=== PATIENT | female | born 1945 | race Caucasian/White ===

== ENCOUNTER 2018-05-21 12:27 | Inpatient (IN) ==
[2018-05-21 12:44] LABS: ABG HCO3 12.5 MMOL/L (20-26); ABG Oxygen Saturation 99.6 % (95-100); ABG PCO2 35.4 MM HG (35-48); ABG TCO2 11.4 MMOL/L (23-27)
[2018-05-21 12:45] LABS: ABG PH 7.149 (7.35-7.45)
[2018-05-21] MEDS ORDERED: PIPERACILLIN/TAZOBACTAM 3,375 MG in SODIUM CHLORIDE 0.9% 100 ML IV STA (12:57)
[2018-05-21 13:05] LABS: Basophils # 0.1 10*3/uL (0.0-0.2); Basophils % 0.3 % (0.0-0.8); Eosinophils % 0.2 % (0.00-10.9); Hematocrit 34.9 VOL% (35.7-47.0); Hemoglobin 10.9 GM/DL (12.0-16.0); Immature Granulocytes % 1.1 %; Immature Granulocytes Absolute 0.19 #; Lymphocytes # 7.5 10*3/uL (1.4-4.0); Lymphocytes % 41.6 % (21.3-54.2); Mean Corpuscular HGB Conc 31.2 GM/DL (32-36); Mean Corpuscular Hemoglobin 32 PG (27-34); Mean Corpuscular Volume 100.9 FL (87-102); Mean Platelet Volume 10.2 FL (9.6-12.0); Monocytes # 0.7 10*3/uL (0.11-0.8); Monocytes % 3.7 % (1.7-12.7); NRBC # 0.13 10*3/uL; Neutrophils # 9.6 10*3/uL (1.4-7.4); Neutrophils % 53.1 % (38.7-73.9); Platelet Count 131 T/CUMM (130-400); Red Blood Count 3.46 MC/CUMM (3.8-5.5); Red Cell Distribution Width 14.1 % (9.3-17.3)
[2018-05-21] MEDS ORDERED: SODIUM CHLORIDE 0.9% 1,000 ML IV STA (13:16)
[2018-05-21 13:33] LABS: Albumin 2.2 G/DL (3.4-5.0); Bilirubin,Total 1.3 MG/DL (0.2-1.0); Calcium 7.7 MG/DL (8.5-10.1); Osmolality,Calculated 296.1 MOS/KG (273-304); Total Protein 5.2 G/DL (6.4-8.3)
[2018-05-21 13:34] LABS: Lactic Acid 8.9 MMOL/L (0.4-2.0)
[2018-05-21 13:36] LABS: Potassium 6.6 MMOL/L (3.5-5.1)
[2018-05-21] MEDS ORDERED: INSULIN REGULAR 100 UNIT/ML IV STA (13:36)
[2018-05-21] MEDS ORDERED: DEXTROSE 50% 25 GM/50 ML VIAL IV STA (13:36)
[2018-05-21] MEDS ORDERED: SODIUM BICARBONATE 50 MEQ/50 ML VIAL IV STA (13:37)
[2018-05-21] MEDS ORDERED: SODIUM BICARBONATE 50 MEQ/50 ML SYRINGE IV ONE (13:43)
[2018-05-21] MEDS ORDERED: DEXTROSE 50% 25 GM/50 ML SYRINGE IV ONE (13:43)
[2018-05-21 14:26] LABS: Barbiturates Screen,Urine Negative (Negative); Benzodiazepines Screen,Urine Negative (Negative); Cannabinoid Screen,Urine Negative (Negative); Opiate Screen,Urine Negative (Negative); Phencyclidine Screen,Urine Negative (Negative)
[2018-05-21 15:08] LABS: Band Neutrophils 5 % (0-10); Lymphocytes 15 % (20-55); Platelet Estimate Adequate; Polychromasia Slight; Segmented Neutrophils 70 % (50-85); Total Cells Counted 100
[2018-05-21] MEDS: NOREPINEPHRINE 16 MG in SODIUM CHLORIDE 0.9% 234 ML IV PRN ×2 (15:17→23:25)
[2018-05-21] MEDS ORDERED: ONDANSETRON 4 MG/2 ML VIAL IV PRN (16:34)
[2018-05-21] MEDS ORDERED: MORPHINE 4 MG/1 ML VIAL IV PRN (16:34)
[2018-05-21] MEDS: cefTRIAXone 1,000 MG in SYRINGE 1 EACH IV SCH (16:59)
[2018-05-21] MEDS: SODIUM CHLORIDE 0.9% 1,000 ML IV SCH (16:59)
[2018-05-21 17:49] VITALS: BP 96/61
[2018-05-21] MEDS: PHENYLEPHRINE INJ 160 MG in SODIUM CHLORIDE 0.9% 234 ML IV PRN (21:34)
[2018-05-22] MEDS: SODIUM CHLORIDE 0.9% 1,000 ML IV SCH ×2 (02:14→09:20)
[2018-05-22 03:44] LABS: Basophils # 0.1 10*3/uL (0.0-0.2); Basophils % 0.2 % (0.0-0.8); Hematocrit 39.2 VOL% (35.7-47.0); Immature Granulocytes % 1.3 %; Immature Granulocytes Absolute 0.29 #; Lymphocytes # 5.7 10*3/uL (1.4-4.0); Lymphocytes % 25.8 % (21.3-54.2); Mean Corpuscular HGB Conc 30.6 GM/DL (32-36); Mean Corpuscular Hemoglobin 31 PG (27-34); Mean Corpuscular Volume 102.3 FL (87-102); Mean Platelet Volume 11.2 FL (9.6-12.0); Monocytes # 1.5 10*3/uL (0.11-0.8); Monocytes % 6.7 % (1.7-12.7); NRBC # 0.43 10*3/uL; Neutrophils # 14.5 10*3/uL (1.4-7.4); Platelet Count 107 T/CUMM (130-400); Red Blood Count 3.83 MC/CUMM (3.8-5.5); Red Cell Distribution Width 14.8 % (9.3-17.3)
[2018-05-22 04:13] LABS: Lactic Acid 11.6 MMOL/L (0.4-2.0)
[2018-05-22 04:14] LABS: Band Neutrophils 6 % (0-10); Eosinophils 1 % (0-10); Lymphocytes 35 % (20-55); Nucleated Red Blood Cells 2 (0-5); Platelet Estimate Decreased; Polychromasia Few; Segmented Neutrophils 47 % (50-85); Total Cells Counted 100
[2018-05-22 04:20] LABS: ABG Base Excess -22.7 MMOL/L (-2.5-2.5); ABG Oxygen Saturation 99.3 % (95-100); ABG PCO2 27.4 MM HG (35-48); ABG PO2 348.6 MM HG (80-95); ABG TCO2 7.8 MMOL/L (23-27)
[2018-05-22 04:33] LABS: ABG PH 7.023 (7.35-7.45)
[2018-05-22 04:38] LABS: Alanine Aminotransferase 193 U/L (13-56); Alkaline Phosphatase 197 U/L (45-117); Aspartate Amino Transferase 970 U/L (0-37); Blood Urea Nitrogen 20 MG/DL (7-18); Calcium 7.7 MG/DL (8.5-10.1); Glucose 174 MG/DL (74-106); Osmolality,Calculated 296.6 MOS/KG (273-304); Potassium 5.3 MMOL/L (3.5-5.1); Sodium 146 MMOL/L (136-145)
[2018-05-22] MEDS ORDERED: SODIUM BICARBONATE 50 MEQ/50 ML SYRINGE IV ONE (05:30)
[2018-05-22] MEDS: NOREPINEPHRINE 16 MG in SODIUM CHLORIDE 0.9% 234 ML IV PRN ×3 (05:54→19:50)
[2018-05-22] MEDS ORDERED: SODIUM BICARB INJ 100 MEQ in DEXTROSE 5% 900 ML IV SCH (08:00)
[2018-05-22] MEDS: SODIUM BICARB INJ 100 MEQ in DEXTROSE 5% 1,000 ML IV SCH ×2 (09:13→19:52)
[2018-05-22] MEDS: PHENYLEPHRINE INJ 160 MG in SODIUM CHLORIDE 0.9% 234 ML IV PRN ×2 (13:14→23:08)
[2018-05-22] MEDS: cefTRIAXone 1,000 MG in SYRINGE 1 EACH IV SCH (17:30)
[2018-05-22] MEDS ORDERED: DOPamine 800 MG/250 ML PREMIX IV ONE (22:57)
[2018-05-22] MEDS ORDERED: DOPamine 800 MG/250 ML PREMIX IV PRN (23:00)
[2018-05-24] MEDS ORDERED: INFLUENZA VIRUS VACCINE 0.5 ML SYRINGE IM ONE (14:39)
== END 2018-05-23 02:57 | disposition expired | DRG 296 ==
LOC: N.ED 12:27 → N.EDINP 13:52 → N.ICU 14:14
PROVIDERS: ADMIT Internal Medicine; ATTEND Internal Medicine